=== PATIENT | female | born 1990 | race Caucasian/White ===

== ENCOUNTER 2018-07-05 16:29 | Inpatient (IN) | payer MEDICAID ==
[~2018-07-05] VITALS: Ht 170.2 cm; Wt 79.4 kg
[2018-07-05 16:44] VITALS: BP 122/90
--- NOTE | 2018-07-05 16:53 | NUR ---
28/F CAME IN W C/O NIPPLE DISCHARGE AND KANDI BREAST PAIN X 1 WEEK. PT REPORTS SHE GOT NIPPLE PIERCINGS TO KANDI BREAST X3 MONTHS AGO PRIOR TO ONSET OF SYMPTOMS. KANDI BREAST AND NIPPLES NOTED WITH PURULENT DRAINAGE AND REDNESS, +TENDERNESS, +WARMTH. PT REPORTS FEVER/CHILLS. DENIES OTHER PMH
--- NOTE | 2018-07-05 16:53 | NUR ---
Patient ambulated to er bed 8
--- NOTE | 2018-07-05 19:10 | NUR ---
Stood in as female manager mutual fund for Dr. Schneider during patient exam
[2018-07-05] MEDS ORDERED: NACL 0.9% 2,000 ML IV ONE (19:24)
[2018-07-05] MEDS ORDERED: ONDANSETRON 4 MG/2 ML VIAL IVP ONE (19:25)
[2018-07-05] MEDS ORDERED: VANCOMYCIN 1GM/DEXT 5% PREMIX 200 ML IV ONE (19:25)
[2018-07-05] MEDS ORDERED: PIPERACILLIN/TAZOBACTAM 3.375 GM in DEXTROSE 5% 50 ML IV ONE (19:25)
[2018-07-05] MEDS ORDERED: MORPHINE SULFATE 4 MG/ML SYR IVP ONE ×2 (19:25→23:20)
[2018-07-05] MEDS ORDERED: VANCOMYCIN PER PHARMACY MC PRN ×2 (19:25→23:10)
[2018-07-05] MEDS ORDERED: PIPERACILLIN/TAZOBACTAM 3.375 GM VIAL IV ONE (19:53)
[2018-07-05] MEDS ORDERED: VANCOMYCIN 1,000 MG VIAL ONE (20:20)
[2018-07-05 20:26] LABS: BASOPHILS % (AUTO) 0.3 % (0.0-2.0); EOSINOPHILS % (AUTO) 0.4 % (0.0-4.0); HEMATOCRIT 40.7 % (36-48); HEMOGLOBIN 13.9 g/dL (12.0-16.0); LYMPHOCYTES # (AUTO) 2.1 K/uL (2.5-16.5); LYMPHOCYTES % (AUTO) 18.7 % (20.5-51.1); MEAN CORPUSCULAR HEMOGLOBIN 32 pg (27-31); MEAN CORPUSCULAR HGB CONC 34 g/dL (33-37); MEAN CORPUSCULAR VOLUME 92.9 fL (80-94); MONOCYTES # (AUTO) 1.1 K/uL (0.8-1.0); NEUTROPHILS # (AUTO) 7.8 K/uL (1.8-7.7); NEUTROPHILS % (AUTO) 70.6 % (42.2-75.2); PLATELET COUNT (AUTO) 200 K/uL (140-450); RED BLOOD CELL COUNT(AUTO) 4.38 MIL/uL (4.20-5.40); RED CELL DISTRIBUTION WIDTH 12.7 % (11.6-13.7); WHITE BLOOD COUNT (AUTO) 11.1 K/uL (4.8-10.8)
[2018-07-05 20:44] LABS: PROTHROMBIN TIME 9.9 secs (10.8-13.4)
[2018-07-05 20:53] LABS: ALBUMIN 3.2 g/dL (3.4-5.0); ANION GAP 11.9 (8-16); CARBON DIOXIDE 27.3 mmol/L (21-32); CREATININE 0.8 mg/dL (0.6-1.3); POTASSIUM 3.2 mmol/L (3.5-5.1); TOTAL BILIRUBIN 0.4 mg/dL (0.0-1.0)
--- NOTE | 2018-07-05 21:08 | NUR ---
PT TAKEN TO CT
--- NOTE | 2018-07-05 21:30 | NUR ---
PT RESTING COMFORTABLY. ALL NEEDS MET. WILL CONTINUE TO MONITOR
[2018-07-05 21:40] LABS: BILIRUBIN,URINE NEGATIVE (NEGATIVE); BLOOD, URINE NEGATIVE (NEGATIVE); COLOR,URINE YELLOW (YELLOW); LEUKOCYTE ESTERASE ,URINE NEGATIVE (NEGATIVE); NITRITE, URINE NEGATIVE (NEGATIVE); PH,URINE 6.5 (5.0-9.0); UGLUCOSE NEGATIVE (NEGATIVE)
[2018-07-05 21:58] LABS: APPEARANCE,URINE CLEAR (CLEAR)
[2018-07-05] MEDS ORDERED: KETOROLAC 30 MG/ML VIAL IVP ONE (22:40)
[2018-07-05] MEDS: DEXT 5% /NACL 0.9% 1,000 ML IV SCH (23:06)
[2018-07-05] MEDS ORDERED: ACETAMINOPHEN 325 MG TAB PO PRN (23:10)
[2018-07-05] MEDS ORDERED: HYDROcodone/APAP 5/325 MG 1 TAB TAB PO PRN (23:10)
[2018-07-05] MEDS ORDERED: DOCUSATE SODIUM 100 MG GELCAP PO PRN (23:10)
[2018-07-05] MEDS ORDERED: ONDANSETRON 4 MG/2 ML VIAL IM/IVP PRN (23:10)
[2018-07-05 23:35] VITALS: BP 118/83
--- NOTE | 2018-07-05 23:35 | NUR ---
Admitted from ER TO MED SURGICAL UNIT , with chief complaint of BREAST PAIN AND REDNESS FOR 3 WEEKS , 28 y/o ,Female, Cooperative, AWAKE, A/OX4. RESPIRATION EVEN AND UNLABORED. IV SALINE LOCK AT THE LEFT AC G20, PATENT AND INTACT. BILATERAL BREAST WITH REDNESS, SWELLING, PAIN, TENDER TO TOUCH. PATIENT HAD NIPPLE PIERCING 3 MONTHS AGO. PAIN IN BOTH BREASTS 1/10, STATED TOLERABLE, WAS MEDICATED WITH MORPHINE IN ER. MOTHER AT THE BEDSIDE. oriented to call light, bed, phone,television, bathroom, smoking policy,
--- NOTE | 2018-07-05 23:35 | NUR ---
Patient will be admitted to care of [facility]. Admited to MS. Will go to room 119B. Belongings list completed. Report to GABY JETT.
[2018-07-05] MEDS ORDERED: [UNRECOGNIZED DRUG - CODE] IU (23:36)
[2018-07-06] MEDS: DEXT 5% /NACL 0.9% 1,000 ML IV SCH ×3 (01:00→19:06)
[2018-07-06] MEDS ORDERED: POTASSIUM CHLORIDE 10 MEQ TABER PO SCH (01:30)
--- NOTE | 2018-07-06 02:03 | NUR ---
K LEVEL - 3.2, MEDICATED WITH K-DUR PO 20 MEQ ORDERED. TOLERATED WELL.
[2018-07-06] MEDS ORDERED: PNEUMOCOCCAL VACCINE 23 MCG/0.5 ML VIAL IMVAC SCH (02:30)
--- NOTE | 2018-07-06 03:00 | NUR ---
SLEEPING COMFORTABLY IN BED.
[2018-07-06] MEDS: KETOROLAC 15 MG/ML VIAL IVP PRN ×2 (03:23→11:05)
[2018-07-06 04:00] VITALS: BP 128/68
[2018-07-06 04:09] LABS: PROTHROMBIN TIME 10.1 secs (10.8-13.4)
[2018-07-06] MEDS ORDERED: PIPERACILLIN/TAZOBACTAM 3.375 GM VIAL IV ONE (04:45)
[2018-07-06] MEDS ORDERED: PIPERACILLIN/TAZOBACTAM 3.375 GM in DEXTROSE 5% 50 ML IV SCH (05:00)
--- NOTE | 2018-07-06 05:05 | NUR ---
Patient's Plan of Care was discussed and reviewed with FUEL CELL ENGINEER: GABY VELEZ.
[2018-07-06 06:24] LABS: BASOPHILS % (AUTO) 0.2 % (0.0-2.0); EOSINOPHILS # (AUTO) 0.1 K/uL (0-0.4); EOSINOPHILS % (AUTO) 1.1 % (0.0-4.0); HEMATOCRIT 36.3 % (36-48); HEMOGLOBIN 12.5 g/dL (12.0-16.0); LYMPHOCYTES # (AUTO) 1.6 K/uL (2.5-16.5); LYMPHOCYTES % (AUTO) 19.5 % (20.5-51.1); MEAN CORPUSCULAR HEMOGLOBIN 32 pg (27-31); MEAN CORPUSCULAR HGB CONC 34 g/dL (33-37); MONOCYTES % (AUTO) 12.4 % (1.7-9.3); NEUTROPHILS # (AUTO) 5.5 K/uL (1.8-7.7); NEUTROPHILS % (AUTO) 66.8 % (42.2-75.2); PLATELET COUNT (AUTO) 152 K/uL (140-450); RED BLOOD CELL COUNT(AUTO) 3.86 MIL/uL (4.20-5.40); RED CELL DISTRIBUTION WIDTH 12.6 % (11.6-13.7); WHITE BLOOD COUNT (AUTO) 8.3 K/uL (4.8-10.8)
--- NOTE | 2018-07-06 06:25 | NUR ---
CONDITION REMAIN STABLE. COMPLAINT OF PAIN ATTENDED PROMPTLY, MEDICATED ORDERED. WILL ENDORSED TO AM NURSE FOR CONTINUITY OF CARE.
[2018-07-06 06:46] LABS: ANION GAP 10.4 (8-16); CARBON DIOXIDE 24.9 mmol/L (21-32); CREATININE 0.7 mg/dL (0.6-1.3); POTASSIUM 3.3 mmol/L (3.5-5.1)
[2018-07-06 06:50] LABS: CHOL/HDL RATIO 2.8 (1-4.5); MAGNESIUM 1.5 mg/dL (1.8-2.4); PHOSPHORUS 3.2 mg/dL (2.5-4.9)
--- NOTE | 2018-07-06 07:15 | NUR ---
ENDORSED TO AM NURSE FOR CONTINUITY OF CARE.
--- NOTE | 2018-07-06 07:25 | NUR ---
RECEIVED PT FROM ADOLESCENT COUNSELOR NURSEGABY, PT IS AWAKE LYING ON THE BED WITH MOTHER ON THE BEDSIDE, SIDE RAILS ARE UP AND CALL LIGHT WITHIN REACH, PT HAS AN IV LINE ON THE RT AC G. 20 WITH D5NS ATR 100ML/HR RUNNING AND INTACT. PT IS ON NPO EXCEPT MEDS. PT'S BILATERAL BREAST WERE SEEN AND EXAMINE AND NO DISCHARGE NOTED. WILL CONTINUE TO MONITOR PT.
--- NOTE | 2018-07-06 07:50 | NUR ---
PT IS AWAKE AND LYING ON THE BED WITH SIDE RAILS UP AND CALL LIGHT WITHIN REACH, GRANDMOTHER ON THE BEDSIDE, PT VERBALIZED A PAIN RATE OF 5/10. VITAL SIGN TAKEN AND IS WITHIN NORMAL LIMIT AND IS STABLE. PT HAS NO FEVER. WILL CONTINUE TO MONITOR PT.
--- NOTE | 2018-07-06 07:58 | NUR ---
INFORMED DR. YANG OF PT'S POTASSIUM LEVEL OF 3.2 AND MAGNESIUM LEVEL OF 1.5, DR. YANG ACKNOWLEDGED AND WILL PLACE AN ORDER.
[2018-07-06 08:00] VITALS: BP 116/75
[2018-07-06] MEDS: LACTOBACILLUS RHAMNOSUS GG 1 EACH CAP PO SCH (08:24)
[2018-07-06] MEDS: VANCOMYCIN 1,250 MG in DEXTROSE 5% 250 ML IV SCH ×2 (08:25→19:58)
--- NOTE | 2018-07-06 08:38 | NUR ---
PT IS AWAKE AND LYING ON THE BED, RESPIRATION EVEN. MEDICATION GIVEN VIA IVPB AND ORAL. PT TOLERATED IT. WILL MONITOR PT FOR ANY REACTION.
--- NOTE | 2018-07-06 08:50 | NUR ---
DR. WEBER CAME TO THE PT'S ROOM AND ASSESSED THE PT, DR. WEBER TOLD THE PT REGARDING THE PLAN OF CARE FOR HER AND THAT ULTRASOUND OF BILATERAL BREAST WILL BE DONE. PT VERBALIZED UNDERSTANDING.
--- NOTE | 2018-07-06 09:00 | NUR ---
ACKNOWLEDGED AN ORDER TO OBTAIN CONSENT TO THE PT FOR A PROCEDURE OF INCISION AND DRAINAGE/DEBRIDEMENT OF RIGHT AND LFT BREAST ABSCESSES. WILL CARRY OUT MD ORDER.
--- NOTE | 2018-07-06 09:14 | NUR ---
PATIENT HAS BEEN SCREENED AND CATEGORIZED LOW NUTRITION RISK. PATIENT WILL BE SEEN WITHIN 7 DAYS OF ADMISSION. 07/12/[address]
[2018-07-06] MEDS ORDERED: MAGNESIUM OXIDE 400 MG TAB PO SCH (10:40)
--- NOTE | 2018-07-06 11:17 | NUR ---
CALLED RADIOLOGY AND SPOKE TO JADEN AND FOLLOWED UP ON THE ULTRASOUND OF THE BILATERAL BREAST THAT NEEDS TO BE DONE TO THE PT, JADEN SAID THAT SHE WILL COME SOON HER TASK IS DONE IN ER.
--- NOTE | 2018-07-06 11:30 | NUR ---
PT WAS OFF THE UNIT NOW AND WAS TAKEN BY OR NURSES AND BROUGHT TO THE OR DEPT FOR AN INCISION AND DRAINAGE/ DEBRIDEMENT OF RT AND LEFT BREAST. INFORMED OR NURSES THAT PT WAS GIVEN TORADOL, MAGNESIUM TABS AND VANCOMYCIN, OR NURSES, ACKNOWLEDGED. PT'S VITAL SIGNS WAS TAKEN AND IS STABLE AND WITHIN NORMAL LIMITS.
[2018-07-06] MEDS ORDERED: ceFAZolin 1,000 MG VIAL ONE (11:56)
[2018-07-06] MEDS ORDERED: MIDAZOLAM 2 MG/2 ML VIAL ONE (12:02)
[2018-07-06] MEDS ORDERED: fentaNYL 0.05 MG/ML VIAL ONE (12:02)
[2018-07-06] MEDS: LIDOCAINE/EPI MPF 1%1:200000 30 ML VIAL INJ ONE ×2 (12:05→12:24)
[2018-07-06] MEDS: BUPIVACAINE-MPF/EPI 0.25% 30 ML VIAL INJ ONE ×2 (12:05→12:24)
[2018-07-06] MEDS ORDERED: ONDANSETRON 4 MG/2 ML VIAL IVP PRN (13:10)
[2018-07-06] MEDS ORDERED: HYDROmorphone 1 MG/ML AMP IVP PRN (13:10)
[2018-07-06] MEDS: HYDROmorphone PFS 2 MG/ML SYR ONE ×2 (13:13→13:23)
[2018-07-06 13:45] VITALS: BP 114/78
--- NOTE | 2018-07-06 13:45 | NUR ---
PT IS BACK TO THE ROOM FROM THE OR FROM INCISION AND DRAINAGE/ DEBRIDEMENT OF BILATERAL BREAS. PT IS AWAKE. AND ALERT, AND VITAL SIGNS TAKEN AND I WITHIN NORMAL LIMITS. INCISION CHECKED AND DRESSING IS INTACT AND DRY. NO SIGN OF DISTRESS NOTED ON THE PT. WILL CONTINUE TO MONITOR PT.
[2018-07-06] MEDS ORDERED: MORPHINE SULFATE 2 MG/ML SYR IVP SCH (14:04)
--- NOTE | 2018-07-06 14:25 | NUR ---
DR. MICHELLE IS IN THE PT' ROOM AND TALKING TO THE PT AND FAMILY, PT IS ALERT AND RESPONDING APPROPRIATELY WITH THE MD. VERIFIED WITH DR. MICHELLE REGARDING THE DOSE OF MORPHINE SCHEDULED AT [address] MICHELLE SAID TO HOLD THE MORPHINE,BECAUSE PT VERBALIZED THAT SHE IS NOT IN PAIN AT THIS MOMENT. ACKNOWLEDGED AND WILL CARRY OUT ORDER.
[2018-07-06] MEDS: PIPER/TAZO 3.375GM/D5W PREMIX 50 ML IV SCH ×2 (14:32→20:00)
--- NOTE | 2018-07-06 14:32 | NUR ---
PT WAS ASSISTED TO THE BATHROOM, BED WAS CLEANED AND SHEETS WERE CHANGED WITH THE HELP OF SUNNY BANUELOS, PT WAS CLEANED AND GOWN WAS CHANGED AND PT WAS MADE COMFORTABLE ON THE BED. MEDICATION GIVEN VIA IVPB AND PT TOLERATED IT. NO REACTION NOTED. WILL CONTINUE TO MONITOR PT.
[2018-07-06 16:00] VITALS: BP 132/86
[2018-07-06] MEDS: MORPHINE SULFATE 2 MG/ML SYR IVP PRN ×2 (16:36→20:42)
--- NOTE | 2018-07-06 16:45 | NUR ---
PT IS AWAKE AND LYING ON THE BED, WITH AUNT ON THE BEDSIDE, PT VERBALIZED A PAIN RATE OF 9/10, MEDICATION GIVEN VIA IV PUSH, PT TOLERATED IT AND NO SIGN OF DISTRESS NOTED. WILL CONTINUE TO MONITOR PT.
--- NOTE | 2018-07-06 18:00 | NUR ---
PT IS HAVING DINNER AND IS TOLERATING HER DIET. NO NAUSEA OR VOMITING NOTED. NO SIGN OF DISTRESS NOTED AND VERBALIZED A TOLERABLE PAIN OF 2/10 AT THIS TIME. WILL MONITOR.
--- NOTE | 2018-07-06 19:20 | NUR ---
ENDORSED PT TO REGULATORY SERVICES CONSULTANT NURSEGABY FOR CONTINUITY OF CARE. PT VERBALIZED A TOLERABLE PAIN AT THIS TIME AND IS STABLE.
--- NOTE | 2018-07-06 19:21 | NUR ---
RECD. RESTING IN BED, AWAKE, A/OX4 RESPIRATION EVEN AND UNLABORED. IV OF NS AT 100 ML/HR INFUSING RIGHT AC G20.S/P I & D OF BILATERAL BREASTS, BOTH WITH DRESSING DRY AND INTACT. PLAN OF CARE DISCUSSED. VERBALIZED UNDERSTANDING. PAIN TOLERABLE, 10/26. WILL CALL NURSE WHEN PAIN INCREASES. CALL LIGHT IN REACH.
--- NOTE | 2018-07-06 19:58 | NUR ---
ADMINISTERED SCHEDULED ABX. PT TOLERATING WELL. WILL CONTINUE TO MONITOR.
--- NOTE | 2018-07-06 20:00 | NUR ---
Patient's Plan of Care was discussed and reviewed with CLAIMS REPRESENTATIVE: GABY VELEZ
[2018-07-06 20:31] VITALS: BP 127/81
[2018-07-06] MEDS: POTASSIUM CHLORIDE 10 MEQ TABER PO SCH (20:42)
[2018-07-06] MEDS: HYDROcodone/APAP 7.5/325 MG 1 TAB PO PRN (22:11)
[2018-07-07 00:55] VITALS: BP 122/88
[2018-07-07] MEDS: MORPHINE SULFATE 2 MG/ML SYR IVP PRN ×2 (00:58→12:44)
[2018-07-07 04:00] VITALS: BP 125/78
[2018-07-07] MEDS: HYDROcodone/APAP 7.5/325 MG 1 TAB PO PRN ×5 (04:00→23:59)
--- NOTE | 2018-07-07 04:00 | NUR ---
AMBULATED SEVERAL TIMES TO BATHROOM TO VOID. GAIT STEADY.
[2018-07-07] MEDS: PIPER/TAZO 3.375GM/D5W PREMIX 50 ML IV SCH ×3 (04:06→21:30)
--- NOTE | 2018-07-07 04:06 | NUR ---
ADMINISTERED SCHEDULED ABX. PT HAS NO SIGNS OF DISTRESS. WILL CONTINUE TO MONITOR.
[2018-07-07] MEDS: DEXT 5% /NACL 0.9% 1,000 ML IV SCH ×2 (04:08→05:06)
--- NOTE | 2018-07-07 06:45 | NUR ---
TOLERATED WELL CLEAR LIQUID DIET. PASSING GAS BUT NO BM YET. COMPLAINT OF ABDOMINAL PAIN ATTENDED PROMPTLY. MEDICATED ORDERED. WILL ENDORSED TO AM NURSE FOR CONTINUITY OF CARE.
--- NOTE | 2018-07-07 07:15 | NUR ---
ENDORSED TO AM NURSE FOR CONTINUITY OF CARE.
--- NOTE | 2018-07-07 07:20 | NUR ---
RECEIVED PT FROM E MERCHANT NURSEGABY, PT IS AWAKE AND LYING ON THE BED WITH SIDE RAILS UP AND CALL LIGHT WITHIN REACH, PT HAS AN IV LINE ON THE RT AC G. 20 WITH D5 NS RUNNING AT 100ML/HR, INTACT. DRESSING INTACT AND DRY. PT VERBALIZED A TOLERABLE PAIN OF 4/10 AT THIS TIME AND NO OTHER UNTOWARD SYMPTOMS NOTED. WILL CONTINUE TO MONITOR PT.
--- NOTE | 2018-07-07 07:45 | NUR ---
DR. TRISTAN WITH THE RESIDENT DOCTORS, CAME TO THE PT'S ROOM AND SPOKE TO PT REGARDING THE PLAN OF CARE, PT VERBALIZED UNDERSTANDING AND ACKNOWLEDGED THE MD STATEMENT.
--- NOTE | 2018-07-07 07:55 | NUR ---
PT IS AWAKE AND HAVING HER BREAKFAST, VITAL SIGNS CHECKED AND IS WITHIN NORMAL LIMITS AND STABLE. NO SIGN OF DISTRESS NOTED AND WILL CONTINUE TO MONITOR PT.
[2018-07-07 08:00] VITALS: BP 129/90
[2018-07-07] MEDS: POTASSIUM CHLORIDE 10 MEQ TABER PO SCH (09:07)
[2018-07-07] MEDS: LACTOBACILLUS RHAMNOSUS GG 1 EACH CAP PO SCH (09:07)
--- NOTE | 2018-07-07 09:08 | NUR ---
PT VERBALIZED A PAIN RATE OF 7/10 AND ASKED FOR A NORCO FOR THE PAIN ON THE INCISION SITE. WILL MEDICATE PT.
--- NOTE | 2018-07-07 09:12 | NUR ---
PT IS AWAKE AND LYING ON THE BED WATCHING TV, MEDICATIONS GIVEN AND PT TOLERATED IT, NO SIGN OF DISTRESS NOTED AND WILL CONTINUE TO MONITOR PT.
--- NOTE | 2018-07-07 10:08 | NUR ---
PT WAS AWAKE AND PAIN WAS RE-ASSESSED AND PT VERBALIZED AND DENIES PAIN AT THIS TIME AND STATES THAT SHE FEEL BETTER AT THIS TIME.
[2018-07-07 10:26] LABS: BASOPHILS % (AUTO) 0.3 % (0.0-2.0); EOSINOPHILS # (AUTO) 0.1 K/uL (0-0.4); EOSINOPHILS % (AUTO) 1.4 % (0.0-4.0); HEMATOCRIT 34.5 % (36-48); HEMOGLOBIN 11.8 g/dL (12.0-16.0); LYMPHOCYTES # (AUTO) 1.1 K/uL (2.5-16.5); LYMPHOCYTES % (AUTO) 16.5 % (20.5-51.1); MEAN CORPUSCULAR HEMOGLOBIN 32 pg (27-31); MEAN CORPUSCULAR HGB CONC 34 g/dL (33-37); MEAN CORPUSCULAR VOLUME 93.3 fL (80-94); MONOCYTES # (AUTO) 0.7 K/uL (0.8-1.0); MONOCYTES % (AUTO) 9.9 % (1.7-9.3); NEUTROPHILS # (AUTO) 4.8 K/uL (1.8-7.7); NEUTROPHILS % (AUTO) 71.9 % (42.2-75.2); PLATELET COUNT (AUTO) 133 K/uL (140-450); RED CELL DISTRIBUTION WIDTH 12.4 % (11.6-13.7); WHITE BLOOD COUNT (AUTO) 6.7 K/uL (4.8-10.8)
[2018-07-07 10:45] LABS: ANION GAP 7.8 (8-16); CREATININE 0.9 mg/dL (0.6-1.3); POTASSIUM 3.8 mmol/L (3.5-5.1)
[2018-07-07 10:52] LABS: MAGNESIUM 1.8 mg/dL (1.8-2.4); PHOSPHORUS 2.9 mg/dL (2.5-4.9)
--- NOTE | 2018-07-07 11:13 | NUR ---
JHON FROM PHARMACY CALLED AND NOTIFIED ABOUT THE PT'S VANCOMYCIN TROUGH LEVEL OF 7.8, ACKNOWLEDGED AND AWAITING PHARMACIST VERIFICATION AND MODIFICATION TO BE DONE WITH THE VANCOMYCIN BEFORE GIVING TO PT.
[2018-07-07] MEDS: NACL 0.9% 1,000 ML IV SCH (11:27)
[2018-07-07] MEDS: VANCOMYCIN 1GM/DEXT 5% PREMIX 200 ML IV SCH ×2 (11:28→19:57)
--- NOTE | 2018-07-07 11:33 | NUR ---
PT IS AWKE AND VANCOMYCIN WAS GIVEN VIA IV PIGGYBACK. WILL MONITOR PT FOR ANY REACTION.
[2018-07-07] MEDS ORDERED: PROPOFOL 200 MG/20 ML VIAL IV ONE (11:53)
[2018-07-07] MEDS ORDERED: LIDOCAINE MPF 2% 100 MG/5 ML VIAL INJ ONE (11:53)
[2018-07-07] MEDS ORDERED: SEVOFLURANE 250 ML BTL INH ONE (11:53)
--- NOTE | 2018-07-07 12:44 | NUR ---
PT IS AWAKE AND CRYING NOW BECAUSE WOUND CARE NURSE IS CLEANING AND DOING A DRESSING CHANGE, PT IS IN SEVERE PAIN AT THIS TIME AND MEDICATED WITH MORPHINE.
[2018-07-07] MEDS ORDERED: SKINTEGRITY HYDROGEL TP SCH (13:00)
--- NOTE | 2018-07-07 13:00 | NUR ---
WOUND CARE ASSESSMENT AND REINFORCEMENT DONE TO PT WITH WOUND CARE NURSE, TANYA, PT IS IN TERRIBLE PAIN DURING THE DRESSING CHANGE. WILL MONITOR PT.
--- NOTE | 2018-07-07 14:01 | NUR ---
WOUND CARE EVALUATION NOTE: REASON FOR EVALUATION: S/P I&D BILATERAL BREASTS SKIN ASSESSMENT DONE WITH PRIMARY RN WITH THIS 28 Y/O FEMALE PT ADMITTED FROM HOME TO [facility] WITH INITIAL DX OF BREASTS PAIN AND REDNESS X 3 WEEKS. PT STATED THAT SHE HAD NIPPLE PIERCING 3 MONTHS AGO. ALL ABOVE INFORMATION OBTAINED FROM ADMISSION H&P AND PT. PT IS AAX4. LABS ARE WBC 6.7, H/H 11.8/34.5, GLUCOSE 107 AND ALBUMIN 3.2. PT SKIN IS WARM AND DRY, GOOD SKIN TURGOR. PLAN OF CARE DISCUSSED WITH PRIMARY RN AND PT. PT. VERBALIZES UNDERSTANDING. INTEGUMENTARY: -S/P I&D BILATERAL BREASTS: LEFT BREAST TY-AREOLA SURGICAL WOUND 1X0.3X1CM, WOUND BED RED AND CLEAN, SMALL AMOUNT SANGUINOUS DRAINAGE AND NO ODOR. TY-WOUND SKIN CLEAN AND INTACT. RIGHT BREAST TY-AREOLA SURGICAL WOUND 0.3X2.5X1.5CM, WOUND BED RED AND CLEAN, SMALL AMOUNT SANGUINOUS DRAINAGE AND NO ODOR. TY-WOUND SKIN CLEAN AND INTACT. PAIN 9/10. RESIDENT PHYSICIAN AT BED AT BEDSIDE MS IV GIVEN BY PRIMARY RN. RECOMMENDATIONS: -CLEANSE S/P I&D LEFT BREASTS SURGICAL WOUNDS WITH NS. PAT DRY, APPLY HYDROGEL TO WOUND BED AND COVER WITH ADAPTIC DRESSING AND DRY DRESSING QD AND PRN IF SOILING. -CLEANSE S/P I&D RIGHT BREASTS SURGICAL WOUNDS WITH NS. PAT DRY, PACK WOUND LIGHTLY WITH HYDROGEL WITH ADAPTIC DRESSING TO WOUND BED AND COVER WITH DRY DRESSING QD AND PRN IF SOILING. ALL ABOVE RECOMMENDATIONS DISCUSSED WITH PRIMARY RN PLEASE CONTACT WOUND CARE NURSE FOR ANY QUESTION AND CHANGE OF WOUND CONDITION.
--- NOTE | 2018-07-07 14:47 | NUR ---
PT IS VERBALIZING THAT SHE HAS A PAIN OF 6/10 AND IS ASKING FOR NORCO, INFORMED DR. YANG IF PT CAN BE GIVEN NORCO FOR THE BREAKTHROUGH PAIN AND DR. YANG AGREED AND PT WAS MEDICATED WITH NORCO. WILL MONITOR.
--- NOTE | 2018-07-07 15:49 | NUR ---
DR. YANG CAME TO THE PT'S ROOM AND TALKED TO THE PT REGARDING HER PRIMARY DOCTOR, PT IS RESPONDING APPROPRIATELY. VITAL SIGNS TAKEN AND MEDICATION GIVEN TO PT VIA IVPB AND PT TOLERATED IT. WILL MONITOR.
--- NOTE | 2018-07-07 15:50 | NUR ---
DR. YANG CALLED AND SAID TO INFORM PT TO FOLLOW -UP WITH DR. WEBER WHEN PT WILL BE DISCHARGE. ACKNOWLEDGED AND WILL FOLLOW THROUGH WITH PT.
--- NOTE | 2018-07-07 15:55 | NUR ---
INFORMED PT OF TO MAKE A FOLLOW-UP IN DR. WEBER'S OFFICE ONCE DISCHARGE, PROVIDED WITH THE CONTACT NO OF DR. WEBER'S CLINIC. PT VERBALIZED UNDERSTANDING.
[2018-07-07 16:00] VITALS: BP 126/86
--- NOTE | 2018-07-07 18:15 | NUR ---
PT IS AWAKE AND SEATED ON THE BED WITH FAMILY ON THE BEDSIDE, DINNER TRAY WAS SERVED. PT DENIES PAIN AT THIS TIME.
--- NOTE | 2018-07-07 19:30 | NUR ---
ENDORSED PT TO [facility] SHIFT NURSE, YOLIE, FOR CONTINUITY OF CARE. PT IS STABLE AT THIS TIME, TALKING TO FAMILY ON THE BEDSIDE.
--- NOTE | 2018-07-07 19:30 | NUR ---
RECEIVED BEDSIDE REPORT FROM JOHNIE BROCK, PT AWAKE IN BED, ON RA, STANDARD PRECAUTIONS, NO SIGNS OF ACUTE DISTRESS, FAMILY AT BEDSIDE. IV IN RIGHT HAND 22 G, INFUSING NS AT 60 ML/HR, DRESSING INTACT. EXPLAINED PLAN OF CARE, UPDATED BORED. PT STATED SHE HAS PAIN IN BREAST, 03/26, PREVENTS HER FROM RESTING, WILL MEDICATE ACCORDING TO DRS ORDER. BILATERAL BREAST DRESSING INTACT, HAS WOUND CARE TODAY. CALL LIGHT WITHIN REACH, WILL CONTINUE TO MONITOR.
--- NOTE | 2018-07-07 19:57 | NUR ---
PT C/O PAIN 6 IN BREAST, MEDICATED WITH NORCO ACCORDING TO GIUSEPPE RIVERA.
--- NOTE | 2018-07-07 21:00 | NUR ---
EDUCATION PROVIDED ABOUT INCENTIVE SPIROMETER USE. PT VERBALIZED UNDERSTANDING, WILL CONTINUE TO MONITOR.
--- NOTE | 2018-07-07 23:58 | NUR ---
PT C/O PAIN IN BOTH BREAST, 03/26, MEDICATED WITH NORCO ACCORDING TO MD ORDER.
[2018-07-08] VITALS: BP 132/72
--- NOTE | 2018-07-08 01:00 | NUR ---
WOUND CARE ON LEFT CHEST PROVIDED, SLIGHT ODOR NOTED, MINIMAL DRESSING, CLEANSED AND DRESSING CHANGED ACCORDING TO MD ORDER. WOUND ON LEFT HIP CHANGED AND CLEANSED ACCORDING TO MD ORDER. NG. G-TUBE TUBING AND FORMULA CHANGED, SUCTIONED X1 DUE TO SECRETIONS. PT IN BED, WILL CONTINUE WITH SOFT WRIST RESTRAINTS DUE TO PATIENT CONTINUING TO PULL AT CENTRAL LINE. Addendum: 07/08/18 at 0135 by Pooja Juarez RN WRONG PT D/C
[2018-07-08] MEDS: NACL 0.9% 1,000 ML IV SCH (03:15)
[2018-07-08] MEDS: VANCOMYCIN 1GM/DEXT 5% PREMIX 200 ML IV SCH (03:53)
[2018-07-08] MEDS: HYDROcodone/APAP 7.5/325 MG 1 TAB PO PRN ×2 (03:59→08:15)
--- NOTE | 2018-07-08 03:59 | NUR ---
PT C/O PAIN 6/10 IN BOTH BREAST, MEDICATED ACCORDING TO MD ORDER. WILL CONTINUE TO MONITOR. DUE VANCOMYCIN GIVEN, WILL CONTINUE TO MONITOR.
[2018-07-08] MEDS: PIPER/TAZO 3.375GM/D5W PREMIX 50 ML IV SCH (05:45)
--- NOTE | 2018-07-08 06:15 | NUR ---
PT SLEEPING IN BED NO SIGNS OF DISTRESS, CALL LIGHT WITHIN REACH, WILL CONTINUE TO MONITOR.
[2018-07-08 07:14] LABS: BASOPHILS % (AUTO) 0.2 % (0.0-2.0); EOSINOPHILS # (AUTO) 0.1 K/uL (0-0.4); EOSINOPHILS % (AUTO) 1.6 % (0.0-4.0); HEMATOCRIT 34.9 % (36-48); HEMOGLOBIN 11.9 g/dL (12.0-16.0); LYMPHOCYTES # (AUTO) 1.3 K/uL (2.5-16.5); LYMPHOCYTES % (AUTO) 19.3 % (20.5-51.1); MEAN CORPUSCULAR HEMOGLOBIN 32 pg (27-31); MEAN CORPUSCULAR HGB CONC 34 g/dL (33-37); MEAN CORPUSCULAR VOLUME 93.5 fL (80-94); MONOCYTES # (AUTO) 0.6 K/uL (0.8-1.0); MONOCYTES % (AUTO) 9.2 % (1.7-9.3); NEUTROPHILS # (AUTO) 4.8 K/uL (1.8-7.7); NEUTROPHILS % (AUTO) 69.7 % (42.2-75.2); PLATELET COUNT (AUTO) 150 K/uL (140-450); RED BLOOD CELL COUNT(AUTO) 3.73 MIL/uL (4.20-5.40); RED CELL DISTRIBUTION WIDTH 12.4 % (11.6-13.7); WHITE BLOOD COUNT (AUTO) 6.9 K/uL (4.8-10.8)
[2018-07-08 07:19] LABS: ANION GAP 6.6 (8-16); CARBON DIOXIDE 28.4 mmol/L (21-32); CREATININE 0.9 mg/dL (0.6-1.3)
[2018-07-08 07:23] LABS: MAGNESIUM 1.9 mg/dL (1.8-2.4); PHOSPHORUS 4.1 mg/dL (2.5-4.9)
--- NOTE | 2018-07-08 07:30 | NUR ---
ENDORSED PT TO DAY SHIFT NURSE, PT STABLE.
--- NOTE | 2018-07-08 07:31 | NUR ---
RECEIVED BEDSIDE REPORT. NO DISTRESS NOTED AT THIS TIME. PATIENT IN STABLE CONDITION. CALL LIGHT WITHIN REACH WILL CONTINUE TO MONITOR.
[2018-07-08 08:00] VITALS: BP 131/89
[2018-07-08] MEDS ORDERED: ACET-2869 PO (08:11)
[2018-07-08] MEDS ORDERED: DOCU-299 PO (08:11)
[2018-07-08] MEDS ORDERED: METR500T1 PO (08:11)
[2018-07-08] MEDS: LACTOBACILLUS RHAMNOSUS GG 1 EACH CAP PO SCH (08:15)
--- NOTE | 2018-07-08 08:30 | NUR ---
PT CONSUMED 100% OF BREAKFAST SERVED. FOOD TOLERATED WELL.
--- NOTE | 2018-07-08 10:55 | NUR ---
PT AWARE OF THE D/C PLAN TODAY, STATED SHE WILL WAIT FOR HER GRANDMA TO COME PICK HER UP. PT ALSO STATED SHE WILL NEED HER GRANDMA TO HELP WITH DAILY DRESSING CHANGES.
[2018-07-08] MEDS ORDERED: PNEUMOCOCCAL VACCINE 23 MCG/0.5 ML VIAL IMVAC SCH (11:50)
[2018-07-08] MEDS: MORPHINE SULFATE 2 MG/ML SYR IVP PRN (13:05)
--- NOTE | 2018-07-08 13:30 | NUR ---
DRESSING CHANGE TO BILATERAL BREAST SURGICAL WOUNDS DONE, INSTRUCTIONS GIVEN TO PT AND PT'S GRANDMOTHER WHICH WAS PRESENT AT THE BEDSIDE AND STATED SHE WILL HELP THE PT IN DOING THE DRESSING CHANGE DAILY AT HOME. BOTH VERBALIZED UNDERSTANDING. PROVIDED PT WITH DRESSING MATERIALS AND SKINTEGRITY.
--- NOTE | 2018-07-08 13:35 | NUR ---
DISCHARGE PHOTOS ON BILATERAL BREAST WOUNDS TAKEN AND DOCUMENTED.
--- NOTE | 2018-07-08 13:50 | NUR ---
DISCHARGE INSTRUCTIONS AND PRESCRIPTIONS GIVEN TO PT WHICH VERBALIZED FULL UNDERSTANDING OF THE TEACHINGS AND INSTRUCTIONS GIVEN AND THE NEED TO FOLLOW UP WITH DR. WEBER ON JUL 13, 2018. ARM BANDS AND IV REMOVED, CANNULA TIP INTACT.
--- NOTE | 2018-07-08 14:05 | NUR ---
ESCORTED PT OUT TO THE FRONT LOBBY IN STABLE CONDITION, AMBULATORY. NO COMPLAINTS MADE. PT IS D/C HOME WITH FAMILY.
[2018-07-08 19:54] LABS: FOLIC ACID 2.9 ng/mL (>3.0)
--- NOTE | 2018-07-08 20:00 | NUR ---
RECEIVED CALL FROM LAB, SPOKE WITH SEBLE, CRITICAL FOR LEFT BREAST RARE GROUP A BETA STREPTOCOCCUS AND RIGHT BREAST GRAM + COCCI IN PAIRS IN CHAINS. REPORTED TO DR MERRILL, AWARE THAT PT IS D/C. NO ORDERS RECEIVED.
[2018-07-09] MEDS ORDERED: PNEUMOCOCCAL VACCINE 23 MCG/0.5 ML VIAL IMVAC SCH (09:00)
== END 2018-07-08 14:05 | disposition home or self-care (01) | DRG 385 ==
LOC: MED 16:29 → MTU 23:15
PROVIDERS: ADMIT General Practice; ATTEND General Practice
PROC: 0H9V0ZZ Drainage of Bilateral Breast, Open Approach (ICD-10-PCS; principal; 2018-07-06 11:30)
PROC: 3E0234Z Introduction of Serum, Toxoid and Vaccine into Muscle, Percutaneous Approach (ICD-10-PCS; 2018-07-08)
DX: N61.1 Abscess of the breast and nipple (principal); E44.0 Moderate protein-calorie malnutrition; N61.0 Mastitis without abscess; E87.6 Hypokalemia; D64.9 Anemia, unspecified; F17.210 Nicotine dependence, cigarettes, uncomplicated; Z88.8 Allergy status to other drugs, medicaments and biological substances; R74.0 Nonspecific elevation of levels of transaminase and lactic acid dehydrogenase [LDH]; L08.9 Local infection of the skin and subcutaneous tissue, unspecified; J98.11 Atelectasis; Z68.27 Body mass index [BMI] 27.0-27.9, adult; Z23 Encounter for immunization
CPT/HCPCS: 36415; 71260; 76641; 80048; 80053; 80202; 81003; 81025; 82150; 82607; 82728; 82746; 83036; 83540; 83605; 83690; 83735; 84100; 84134; 84443; 85025; 85045; 85610; 85730; 87040; 87070; 87075; 87081; 87086; 90732; 93005; 96365; 96375; 96376; 99285; A6248; C1758; J0690; J1170; J1885; J2001; J2250; J2270; J2405; J2543; J2704; J3010; J3370; J3490; J7030; J7042; J7060; Q0092; Q9967